=== PATIENT | male | born 1980 | race American Indian/Alaskan Native ===

== ENCOUNTER 2017-03-15 11:14 | Emergency (ER) | payer SELFPAY ==
[2017-03-15] MEDS ORDERED: ASPIRIN PO ONE (11:27)
[2017-03-15] MEDS ORDERED: CATAPRES PO ONE (11:34)
[2017-03-15 11:44] LABS: Basophils # (Auto) 0.1 K/mm3 (0.0-0.1); Basophils % (Auto) 1.1 % (0.0-1.8); Eosinophils # (Auto) 0.3 K/mm3 (0.0-0.4); Eosinophils % (Auto) 3.7 % (0.0-4.3); Hematocrit 41.3 % (35.5-45.6); Hemoglobin 13.7 gm/dl (11.8-15.2); Lymphocytes # (Auto) 2.1 K/mm3 (1.2-5.4); Lymphocytes % (Auto) 30.3 % (13.4-35.0); Mean Corpuscular HGB Conc 33 % (32-34); Mean Corpuscular Hemoglobin 30 pg (28-32); Mean Corpuscular Volume 90 fl (84-94); Monocytes # (Auto) 0.4 K/mm3 (0.0-0.8); Monocytes % (Auto) 5.4 % (0.0-7.3); Platelet Count 279 K/mm3 (140-440); Red Blood Count 4.57 M/mm3 (3.65-5.03); Red Cell Distribution Width 13.1 % (13.2-15.2)
[2017-03-15 12:04] LABS: BUN/Creatinine Ratio 12; Blood Urea Nitrogen 22 mg/dL (9-20); Calcium 9.1 mg/dL (8.4-10.2); Hemolysis Index 5
--- NOTE | 2017-03-15 12:05 | Cat Scan Report ---
CT HEAD WITHOUT CONTRAST INDICATION: Dizziness. COMPARISON: None similar. FINDINGS: Noncontrast head CT demonstrates normal ventricles and sulci without acute or recent infarct, hemorrhage, mass effect or midline shift. No abnormal extra-axial fluid collections. Posterior fossa structures and basilar cisterns appear within normal limits. Approximately 5 mm right maxillary sinus polyp or mucus retention cyst superiorly. Mild sphenoid sinus mucosal thickening anteriorly as well, right more than left. Clear remainder imaged paranasal sinuses and mastoid air cells. Intact calvarium. Normal overlying scalp soft tissues. Few radiopaque dental material incidentally noted. CONCLUSION: No acute intracranial CT abnormality, as described. Thank you for the opportunity to participate in this patient's care.
--- NOTE | 2017-03-15 17:56 | Emergency Department Report ---
ED Chest Pain HPI - General Chief Complaint: Chest Pain Stated Complaint: CHEST PAIN Time Seen by Provider: 03/15/17 17:39 Source: patient Mode of arrival: Ambulatory Limitations: No Limitations - History of Present Illness Initial Comments: Patient is a 36-year-old male with past medical history hypertension who has been noncompliant with his blood pressure medicines as of late. Patient is supposed to take lisinopril and Norvasc but has only been taking the Norvasc. Patient states that to try to improve his blood pressure he has been attempting to work out and lose weight. His maintenance changes to his diet however. Patient states over the past several weeks with walking treadmill he will get chest pressure and tightness with shortness of breath. Patient states it feels like his chest is constricted and. Patient states this was originally improved with rest however now he is having chest pain at rest as well. Patient signed in today for evaluation of his blood pressure and chest discomfort. Patient states the pain does not radiate. States pain at worst is a 6 out of 10. Severity scale (0 -10): 0 - Related Data Previous Rx's Medication Instructions Recorded Last Taken Type HYDROcodone/APAP 5-325 [[place] 1 - 2 each PO Q6HR PRN #14 tablet 08/05/15 Unknown Rx 5/325] Ibuprofen [Motrin 800 MG tab] 800 mg PO Q8HR PRN #20 tablet 08/05/15 Unknown Rx amLODIPine [Norvasc] 5 mg PO DAILY #90 tab 08/05/15 Unknown Rx Allergies Allergy/AdvReac Type Severity Reaction Status Date / Time No Known Allergies Allergy Verified 08/05/15 18:44 Heart Score - HEART Score History: Highly suspicious EKG: Normal Age: < 45 Risk factors: 1-2 risk factors Troponin: < normal limit HEART Score: 3 ED Review of Systems ROS: Stated complaint: CHEST PAIN Other details as noted in HPI Comment: All other systems reviewed and negative ED Past Medical Hx - Past Medical History Hx Hypertension: Yes - Surgical History Past Surgical History?: Yes Additional Surgical History: l knee surgery - Social History Smoking Status: Former Smoker Substance Use Type: None - Medications Home Medications: Home Medications Medication Instructions Recorded Confirmed Last Taken Type HYDROcodone/APAP 5-325 [[place] 1 - 2 each PO Q6HR PRN #14 tablet 08/05/15 Unknown Rx 5/325] Ibuprofen [Motrin 800 MG tab] 800 mg PO Q8HR PRN #20 tablet 08/05/15 Unknown Rx amLODIPine [Norvasc] 5 mg PO DAILY #90 tab 08/05/15 Unknown Rx ED Physical Exam - General Limitations: No Limitations General appearance: alert, in no apparent distress - Head Head exam: Present: atraumatic, normocephalic - Eye Eye exam: Present: normal appearance - ENT ENT exam: Present: mucous membranes moist - Neck Neck exam: Present: normal inspection - Respiratory Respiratory exam: Present: normal lung sounds bilaterally. Absent: respiratory distress - Cardiovascular Cardiovascular Exam: Present: regular rate, normal rhythm. Absent: systolic murmur, diastolic murmur, rubs, gallop - GI/Abdominal GI/Abdominal exam: Present: soft, normal bowel sounds - Rectal Rectal exam: Present: deferred - Extremities Exam Extremities exam: Present: normal inspection - Back Exam Back exam: Present: normal inspection - Neurological Exam Neurological exam: Present: alert, oriented X3 - Psychiatric Psychiatric exam: Present: normal affect, normal mood - Skin Skin exam: Present: warm, dry, intact, normal color. Absent: rash ED Course Vital Signs 03/15/17 03/15/17 03/15/17 11:24 13:15 16:58 Temperature 98.1 F Pulse Rate 91 H 82 Respiratory 13 Rate Blood Pressure 201/134 Blood Pressure 146/109 [Right] O2 Sat by Pulse 99 Oximetry 03/15/17 17:00 Temperature Pulse Rate 73 Respiratory 11 L Rate Blood Pressure 138/94 Blood Pressure [Right] O2 Sat by Pulse 100 Oximetry FIOR score - Fior Score Age > 65: (0) No Aspirin use within the Past 7 Days: (0) No 3 or more CAD Risk Factors: (0) No 2 or more Angina events in past 24 hrs: (0) No Known CAD with more than 50% Stenosis: (0) No Elevated Cardiac Markers: (0) No ST Deviation Greater than 0.5mm: (0) No FIOR Score: 0 ED Medical Decision Making - Lab Data Result diagrams: 03/15/17 11:29 03/15/17 11:29 - EKG Data -: EKG Interpreted by Mi - EKG Data 03/15/17 17:55 EKG shows sinus rhythm a rate of 71 normal axis normal intervals and no ST segment changes patient's EKG was interpreted 1132 - Medical Decision Making Patient is a 36-year-old -[place] male whose presenting with anginal- like symptoms. The patient does have a history of hypertension his blood pressure was 200 systolic on arrival. It is improved at the time the patient was seen by me. Patient is still having some chest discomfort. Nitroglycerin will be given. Patient will be admitted to Dr. Giang the hospitalist service for cardiac stratification. A potential stress test. Critical care attestation.: If time is entered above; I have spent that time in minutes in the direct care of this critically ill patient, excluding procedure time. ED Disposition Clinical Impression: Chest pain Qualifiers: Ischemic chest pain type: unstable angina pectoris Disposition: OP ADMIT IP TO THIS HOSP Is pt being admited?: Yes Does the pt Need Aspirin: Yes Condition: Stable Instructions: Chest Pain (ED) Referrals: PRIMARY CARE, [Primary Care Provider] - 3-5 Days
[2017-03-15] MEDS ORDERED: NACL 0.45% 500 ML IV SCH (18:00)
--- NOTE | 2017-03-15 18:50 | XRay Report ---
FINAL REPORT EXAM: XR CHEST ROUTINE 2V HISTORY: chest pain . TECHNIQUE: PA and lateral views of the chest PRIORS: None. FINDINGS: Lines, tubes, and devices: N/A Lungs and pleura: Trachea is normal in position. Lungs are clear of infiltrate, pleural effusion, vascular congestion, or pneumothorax. Cardiomediastinal silhouette: Cardiac and mediastinal silhouettes are unremarkable. Other: Bony structures are intact. IMPRESSION: No acute cardiopulmonary process seen.
[2017-03-15] MEDS ORDERED: APRESOLINE IV ONE (18:58)
--- NOTE | 2017-03-15 19:00 | History and Physical Report ---
History of Present Illness Chief complaint: My chest is tight History of present illness: 36 YO Male with Obesity, Anxiety, HTN, Metabolic Syndrome presents to ED for evaluation of chest pain. Patient states that to try to improve his blood pressure he has been attempting to work out and lose weight. His maintenance changes to his diet however. Patient states thath he has experienced chest pressure and tightness in his chest. Patient states that it feels like his chest is constricted. Patient states this was originally improved with rest however now he is having chest pain at rest as well. Patient signed in today for evaluation of his blood pressure and chest discomfort. Patient seen and evaluated in ED and underwent serial cardiac enzymes, ekg, and d dimer which were negative for acute ischemia. Pt counseled regarding anxiety, increased physical activity, and balanced diet. Pt medically optimized and discharged home. Past History Past Medical History: hypertension Past Surgical History: Other (knee surgery) Social history: single Family history: hypertension. denies: CAD Medications and Allergies Allergies Allergy/AdvReac Type Severity Reaction Status Date / Time No Known Allergies Allergy Verified 08/05/15 18:44 Home Medications Medication Instructions Recorded Confirmed Last Taken Type HYDROcodone/APAP 5-325 [[place] 1 - 2 each PO Q6HR PRN #14 tablet 08/05/15 Unknown Rx 5/325] Ibuprofen [Motrin 800 MG tab] 800 mg PO Q8HR PRN #20 tablet 08/05/15 Unknown Rx amLODIPine [Norvasc] 5 mg PO DAILY #90 tab 08/05/15 Unknown Rx Metoprolol [Lopressor TAB] 25 mg PO DAILY #30 tablet 03/15/17 Unknown Rx Pantoprazole [Protonix] 40 mg PO QDAY #30 tablet 03/15/17 Unknown Rx Active Meds: Active Medications Hydralazine HCl (Apresoline) 10 mg IV ONCE ONE Stop: 03/15/17 18:59 Sodium Chloride (Nacl 0.45%) 500 mls @ 500 mls/hr IV DIRECT ANUSHKA Last Admin: 03/15/17 18:43 Dose: 500 mls/hr Review of Systems Constitutional: no weight loss, no weight gain, no fever, no chills, no sweats Ears, nose, mouth and throat: no ear pain, no ear discharge, no tinnitis, no decreased hearing, no nose pain, no nasal congestion, no nasal discharge Cardiovascular: no orthopnea, no palpitations, no rapid/irregular heart beat, no edema Respiratory: no cough, no cough with sputum, no excessive sputum, no hemoptysis , no shortness of breath Gastrointestinal: no nausea, no vomiting, no diarrhea, no constipation, no change in bowel habits Genitourinary Male: no hematuria, no flank pain, no discharge, no urinary frequency, no urinary hesitancy, no nocturia Rectal: no pain, no incontinence, no bleeding Musculoskeletal: no neck stiffness, no neck pain, no shooting arm pain, no arm numbness/tingling, no low back pain Integumentary: no rash, no pruritis, no redness, no sores, no wounds, no jaundice Neurological: no head injury, no transient paralysis, no paralysis, no weakness , no parathesias, no numbness Psychiatric: no anxiety, no memory loss, no change in sleep habits, no sleep disturbances, no insomnia, no hypersomnia Endocrine: no cold intolerance, no heat intolerance, no polyphagia, no excessive thirst, no polydipsia, no polyuria Hematologic/Lymphatic: no easy bruising, no easy bleeding Allergic/Immunologic: no urticaria, no allergic rhinitis, no wheezing Exam - Constitutional Vitals: Temp Pulse Resp BP Pulse Ox 98.1 F 78 11 L 162/105 96 03/15/17 11:24 03/15/17 18:46 03/15/17 18:46 03/15/17 18:46 03/15/17 18:46 General appearance: Present: no acute distress, well-nourished - EENT Eyes: Present: PERRL ENT: hearing intact, clear oral mucosa - Neck Neck: Present: supple, normal ROM - Respiratory Respiratory effort: normal Respiratory: bilateral: CTA - Cardiovascular Heart Sounds: Present: S1 & S2. Absent: rub, click - Extremities Extremities: pulses symmetrical, No edema Peripheral Pulses: within normal limits - Abdominal General gastrointestinal: Present: soft, non-tender, non-distended, normal bowel sounds Male genitourinary: Present: normal - Integumentary Integumentary: Present: clear, warm, dry - Musculoskeletal Musculoskeletal: gait normal, strength equal bilaterally - Psychiatric Psychiatric: appropriate mood/affect, intact judgment & insight - Neurologic Neurologic: CNII-XII intact, moves all extremities Results - Labs CBC & Chem 7: 03/15/17 11:29 03/15/17 11:29 Labs: Abnormal lab results 03/15/17 03/15/17 03/15/17 Range/Units 11:29 11:29 18:06 RDW 13.1 L (13.2-15.2) % BUN 22 H (9-20) mg/dL Creatinine 1.9 H (0.8-1.5) mg/dL Glucose 103 H (75-100) mg/dL Total Creatine Kinase 265 H (55-170) units/L Assessment and Plan - Patient Problems (1) GERD (gastroesophageal reflux disease) Current Visit: Yes Status: Acute Plan to address problem: PPI therapy (2) Atypical chest pain Current Visit: Yes Status: Acute Plan to address problem: serial cardiac enzymes, ekg, telemetry, (3) Obesity (BMI 30.0-34.9) Current Visit: Yes Status: Acute Plan to address problem: Balanced diet, increased physical acitivity,
[2017-03-15 20:11] VITALS: BP 165/105
[2017-03-15 20:57] LABS: Calcium 8.6 mg/dL (8.4-10.2)
== END 2017-03-15 21:22 | disposition admitted as inpatient to this hospital (09) ==
LOC: ED 11:14
DX: R07.89 Other chest pain (principal); I10 Essential (primary) hypertension; Z87.891 Personal history of nicotine dependence
CPT/HCPCS: 36415; 70450; 71046; 80048; 82550; 84484; 85025; 85379; 93005; 93010; 96374; 99284; J0360

== ENCOUNTER 2019-04-16 10:27 | Emergency (ER) | payer SELFPAY ==
[2019-04-16] MEDS ORDERED: VALSARTAN 40 MG TAB PO ONE (11:15)
[2019-04-16] MEDS ORDERED: amLODIPine 5 MG TAB PO ONE (11:16)
--- NOTE | 2019-04-16 11:16 | Event Note ---
ED Screening Note ED Screening Note: pt is a 38 yo male who presents to the ED with c/o a headache began three days ago he states it has been getting better he states he is supposed to be on blood pressure medication and believes it was related to his blood pressure states he has not taken in a week and a half valsartan 80 mg once a day no vision changes no numbness or weakness no decreased urination no cp no sob This initial assessment/diagnostic orders/clinical plan/treatment(s) is/are subject to change based on patients health status, clinical progression and re- assessment by fellow clinical providers in the ED. Further treatment and workup at subsequent clinical providers discretion. Patient/guardian urged not to elope from the ED as their condition may be serious if not clinically assessed and managed.
--- NOTE | 2019-04-16 12:09 | Emergency Department Report ---
ED General Adult HPI - General Chief complaint: Headache Stated complaint: HEADACHE/COLD/BACK PAIN Time Seen by Provider: 04/16/19 11:13 Source: patient Mode of arrival: Ambulatory Limitations: No Limitations - History of Present Illness Initial comments: pt is a 38 yo male who presents to the ED with c/o a headache began three days ago. he states it has been getting better and is just a mild headache today. he states he is supposed to be on blood pressure medication and believes it was related to his blood pressure. he states he has not taken in a week and a half. he takes valsartan 80 mg once a day. he denies any vision changes, no numbness or weakness, no decreased urination, no cp, no sob. he states that previously he did take amlodipine and states it did control his pressure. - Related Data Previous Rx's Medication Instructions Recorded Last Taken Type HYDROcodone/APAP 5-325 [[place] 1 - 2 each PO Q6HR PRN #14 tablet 08/05/15 Unknown Rx 5/325] Ibuprofen [Motrin 800 MG tab] 800 mg PO Q8HR PRN #20 tablet 08/05/15 Unknown Rx amLODIPine [Norvasc] 5 mg PO DAILY #90 tab 08/05/15 Unknown Rx Metoprolol [Lopressor TAB] 25 mg PO DAILY #30 tablet 03/15/17 Unknown Rx Pantoprazole [Protonix] 40 mg PO QDAY #30 tablet 03/15/17 Unknown Rx amLODIPine 10 mg PO DAILY 60 Days #60 tab 04/16/19 Unknown Rx Allergies Allergy/AdvReac Type Severity Reaction Status Date / Time No Known Allergies Allergy Verified 08/05/15 18:44 ED Review of Systems ROS: Stated complaint: HEADACHE/COLD/BACK PAIN Other details as noted in HPI Comment: All other systems reviewed and negative ED Past Medical Hx - Past Medical History Hx Hypertension: Yes - Surgical History Additional Surgical History: l knee surgery - Social History Smoking Status: Current Every Day Smoker Substance Use Type: Marijuana - Medications Home Medications: Home Medications Medication Instructions Recorded Confirmed Last Taken Type HYDROcodone/APAP 5-325 [[place] 1 - 2 each PO Q6HR PRN #14 tablet 08/05/15 Unknown Rx 5/325] Ibuprofen [Motrin 800 MG tab] 800 mg PO Q8HR PRN #20 tablet 08/05/15 Unknown Rx amLODIPine [Norvasc] 5 mg PO DAILY #90 tab 08/05/15 Unknown Rx Metoprolol [Lopressor TAB] 25 mg PO DAILY #30 tablet 03/15/17 Unknown Rx Pantoprazole [Protonix] 40 mg PO QDAY #30 tablet 03/15/17 Unknown Rx amLODIPine 10 mg PO DAILY 60 Days #60 tab 04/16/19 Unknown Rx ED Physical Exam - General Limitations: No Limitations General appearance: alert, in no apparent distress - Head Head exam: Present: atraumatic, normocephalic - Eye Eye exam: Present: normal appearance, PERRL, EOMI - ENT ENT exam: Present: mucous membranes moist - Respiratory Respiratory exam: Present: normal lung sounds bilaterally. Absent: respiratory distress, wheezes, rales, rhonchi, stridor, chest wall tenderness, accessory muscle use, decreased breath sounds, prolonged expiratory - Cardiovascular Cardiovascular Exam: Present: regular rate, normal rhythm, normal heart sounds. Absent: systolic murmur, diastolic murmur, rubs, gallop - Neurological Exam Neurological exam: Present: alert, oriented X3, CN II-XII intact, normal gait. Absent: motor sensory deficit - Psychiatric Psychiatric exam: Present: normal affect, normal mood - Skin Skin exam: Present: warm, dry, intact ED Course Vital Signs 04/16/19 04/16/19 04/16/19 10:54 11:13 11:23 Temperature 98.8 F Pulse Rate 79 72 72 Respiratory 18 Rate Blood Pressure 173/125 162/114 Blood Pressure 162/114 [Right] O2 Sat by Pulse 98 Oximetry 04/16/19 12:25 Temperature Pulse Rate 61 Respiratory 15 Rate Blood Pressure Blood Pressure 158/109 [Right] O2 Sat by Pulse Oximetry ED Medical Decision Making - Medical Decision Making pt is a 38 yo male who presents to the ED with c/o a headache began three days ago. he states it has been getting better and is just a mild headache today. he states he is supposed to be on blood pressure medication and believes it was related to his blood pressure. he states he has not taken in a week and a half. he takes valsartan 80 mg once a day. he denies any vision changes, no numbness or weakness, no decreased urination, no cp, no sob. he states that previously he did take amlodipine and states it did control his pressure. initial vitals with elevated bp which improved upon amlodipine administration. no abnormality on physical examination as documented. After patient was given blood pressure medication on reexamination he was feeling better and headache had improved. Patient given prescription for amlodipine and advised patient that he could get this medication free at [facility] secondary to monetary issues. advised pt please take medication as prescribed. keep a blood pressure log and take your blood pressure three times a day. eat a low sodium diet. increase your water intake. incorporate daily exercise. follow up with a primary care doctor for management of this chronic condition. return to the emergency room for any new or worsening symptoms including but not limited to worsening headache, chest pain, shortness of breath, decreased urination, numbness, weakness, etc. patient given community resources. - Differential Diagnosis hypertension, cluster headache, migraine, tension vences Critical care attestation.: If time is entered above; I have spent that time in minutes in the direct care of this critically ill patient, excluding procedure time. ED Disposition Clinical Impression: Hypertension Qualifiers: Hypertension type: essential hypertension Qualified Code(s): I10 - Essential (primary) hypertension Headache Qualifiers: Headache type: unspecified Headache chronicity pattern: acute headache Intractability: not intractable Qualified Code(s): R51 - Headache Disposition: DC-01 TO HOME OR SELFCARE Is pt being admited?: No Does the pt Need Aspirin: No Condition: Stable Instructions: Hypertension (ED) Additional Instructions: please take medication as prescribed. keep a blood pressure log and take your blood pressure three times a day. eat a low sodium diet. increase your water intake. incorporate daily exercise. follow up with a primary care doctor for management of this chronic condition. return to the emergency room for any new or worsening symptoms including but not limited to worsening headache, chest pain, shortness of breath, decreased urination, numbness, weakness, etc. Prescriptions: amLODIPine 10 mg PO DAILY 60 Days #60 tab Referrals: CRISTIN ARAGON MD [Staff Physician] - 2-3 Days [facility] [Outside] - 2-3 Days [facility] [Outside] - 2-3 Days Time of Disposition: 12:24 Print Language: INDONESIAN
[2019-04-16 12:26] VITALS: BP 158/109
== END 2019-04-16 12:30 | disposition home or self-care (01) ==
LOC: ED 10:27
DX: R51 Headache (principal); I10 Essential (primary) hypertension; F17.200 Nicotine dependence, unspecified, uncomplicated; F12.10 Cannabis abuse, uncomplicated; Z79.1 Long term (current) use of non-steroidal anti-inflammatories (NSAID); Z79.899 Other long term (current) drug therapy; Z98.890 Other specified postprocedural states
CPT/HCPCS: 99282